=== PATIENT | female | born 1940 ===

== ENCOUNTER 2017-04-23 09:55 | Inpatient (IN) | payer MEDICARE ==
[2017-04-23 09:55] VITALS: BMI 26.0
[2017-04-23] MEDS ORDERED: Sodium Chloride 0.9% 500 ML IV STA (11:14)
[2017-04-23] MEDS ORDERED: Sodium Chloride 0.9% 500 ML IV ONE (11:27)
[2017-04-23 11:35] LABS: BASO % 0.9 % (0.0-2.0); EOS # 0.1 K/uL (0.0-0.7); EOS % 1.8 % (0.0-4.0); HEMATOCRIT 35.1 % (34.0-47.0); LYMPH # 1.2 K/uL (1.0-4.3); LYMPH % 23.5 % (20.0-40.0); MEAN CELL VOLUME 88.5 fL (81.0-99.0); MEAN CORPUSCULAR HEMOGLOBIN 28.4 pg (27.0-31.0); MEAN CORPUSCULAR HGB CONC 32.1 g/dL (33.0-37.0); MEAN PLATELET VOLUME 9.5 fL (7.2-11.7); MONO # 0.5 K/uL (0.0-0.8); MONO % 9.7 % (0.0-10.0); NRBC % 0.1 % (0.0-2.0); RED CELL DISTRIBUTION WIDTH 14.4 % (11.5-14.5); WHITE BLOOD COUNT 5.2 K/uL (4.8-10.8)
[2017-04-23 11:40] LABS: RBC URINE 4 /hpf (0-3); URINE BILIRUBIN NEGATIVE (NEGATIVE); URINE BLOOD 1+ (NEGATIVE); URINE COLOR Yellow (YELLOW); URINE GLUCOSE (UA) NORMAL (Normal); URINE HYALINE CAST 0-2 /lpf (0-2); URINE KETONE NEGATIVE (NEGATIVE); URINE LEUKOCYTE ESTERASE 3+ Leu/uL (Negative); URINE PROTEIN NEGATIVE (NEGATIVE); URINE UROBILINOGEN NORMAL mg/dL (0.2-1.0); WBC CLUMPS MOD /hpf; WBC URINE 468 /hpf (0-5)
--- NOTE | 2017-04-23 11:45 | RAD ---
PROCEDURE: CHEST RADIOGRAPH, 1 VIEW HISTORY: dizzy COMPARISON: Chest radiographs 12/25/2011. FINDINGS: LUNGS: No airspace disease appreciate bilaterally although inspiratory volume appears diminished in the interval. PLEURA: No pneumothorax or pleural fluid seen. CARDIOVASCULAR: Potential cardiomegaly versus technical magnification. OSSEOUS STRUCTURES: No significant abnormalities. VISUALIZED UPPER ABDOMEN: Normal. OTHER FINDINGS: None. IMPRESSION: Borderline cardiomegaly pattern. No pulmonary derangement. No acute infiltrate bilaterally in the interval.
[2017-04-23 11:50] LABS: ALKALINE PHOSPHATASE 78 U/L (38-126); ALT/SGPT 28 U/L (9-52); AST/SGOT 19 U/L (14-36); BILIRUBIN,TOTAL 0.7 mg/dL (0.2-1.3); BLOOD UREA NITROGEN 29 mg/dL (7-17); CALCIUM 8.6 mg/dl (8.6-10.4); CARBON DIOXIDE 33 mmol/L (22-30); CHLORIDE 97 mmol/L (98-107); GFR AFRICAN-AMERICAN 48; GLUCOSE,RANDOM 182 mg/dL (65-105); SODIUM 137 mmol/L (132-148); TOTAL PROTEIN 7.9 g/dL (6.3-8.3)
[2017-04-23 11:53] LABS: URINE BACTERIA FEW (<OCC)
--- NOTE | 2017-04-23 12:31 | CT ---
PROCEDURE: CT HEAD WITHOUT CONTRAST. HISTORY: dizzy COMPARISON: None available. TECHNIQUE: Axial computed tomography images were obtained through the head/brain without intravenous contrast. Radiation dose: Total exam DLP = 711.20 mGy-cm. This CT exam was performed using one or more of the following dose reduction techniques: Automated exposure control, adjustment of the mA and/or kV according to patient size, and/or use of iterative reconstruction technique. FINDINGS: HEMORRHAGE: No intracranial hemorrhage. BRAIN: No mass effect or edema. Intracranial atherosclerosis. Scattered periventricular and subcortical white matter hypodensities, which are nonspecific, but often seen with chronic microvascular ischemic disease. Please note that MRI with diffusion imaging is more sensitive in the detection of acute ischemic event. VENTRICLES: No hydrocephalus. CALVARIUM: Unremarkable. PARANASAL SINUSES: Unremarkable as visualized. No significant inflammatory changes. MASTOID AIR CELLS: Unremarkable as visualized. No inflammatory changes. OTHER FINDINGS: None. IMPRESSION: Nonspecific white matter changes as above.
--- NOTE | 2017-04-23 14:47 | C.PDOC ---
History Of Present Illness 77 y/o female presents to ED for evaluation of dizziness and nausea. Pt states that she had history of vertigo in the past, notes last episode of dizziness was few years ago. Notes taking Meclizine without relief. Denies headache, change in sensation, vision change, fever, or other complaints. Chief Complaint (Nursing): Dizziness/Lightheaded History Per: Patient History/Exam Limitations: no limitations Onset/Duration Of Symptoms: Days Current Symptoms Are (Timing): Still Present Recent travel outside of the [place]: No Additional History Per: Patient Past Medical History Reviewed: Historical Data, Nursing Documentation, Vital Signs Vital Signs: Last Vital Signs Temp 98 F 04/23/17 16:40 Pulse 71 04/23/17 16:40 Resp 18 04/23/17 16:40 BP 118/76 04/23/17 16:40 Pulse Ox 98 04/23/17 17:44 - Medical History PMH: Gastritis, HTN Denies: Chronic Kidney Disease Surgical History: Cholecystectomy Family History: States: Unknown Family Hx - Social History Hx Alcohol Use: No Hx Substance Use: No - Immunization History Hx Tetanus Toxoid Vaccination: No Hx Influenza Vaccination: Yes (2017) Hx Pneumococcal Vaccination: No Review Of Systems Except As Marked, All Systems Reviewed And Found Negative. Constitutional: Negative for: Fever, Chills Cardiovascular: Negative for: Chest Pain, Palpitations Respiratory: Negative for: Cough, Shortness of Breath Gastrointestinal: Positive for: Nausea. Negative for: Vomiting, Abdominal Pain Neurological: Positive for: Dizziness. Negative for: Weakness, Numbness, Headache Physical Exam - Physical Exam Appears: Non-toxic, No Acute Distress Skin: Normal Color, Warm, Dry Head: Atraumatic, Normacephalic Eye(s): bilateral: Normal Inspection, Other (no nystagmus) Neck: Normal ROM, Supple Chest: Symmetrical Cardiovascular: Rhythm Regular, No Murmur Respiratory: Normal Breath Sounds, No Rales, No Rhonchi, No Wheezing Gastrointestinal/Abdominal: Soft, No Tenderness Extremity: Normal ROM Neurological/Psych: Oriented x3, Normal Speech, Normal Cognition, Other (neuro intact) ED Course And Treatment - Laboratory Results Result Diagrams: 04/23/17 11:26 04/23/17 11:26 O2 Sat by Pulse Oximetry: 98 Pulse Ox Interpretation: Normal - CT Scan/US Head CT Other Rad Studies (CT/US): Read By Radiologist, Radiology Report Reviewed CT/US Interpretation: Accession No. : [id number]. Patient Name / ID : ADRIEN MADISON / [id number]. Exam Date : 04/23/2017 11:52:14 ( Approved ). Study Comment : Sex / Age : F / 77Y. Creator : Mag Leigh. Dictator : Kellie Melendez MD. Plastic Mixer : [employer] Executive Director : Kellie Melendez MD. Approver2 : Report Date : 04/23/2017 12:19:51. My Comment : . PROCEDURE: CT HEAD WITHOUT CONTRAST. HISTORY: dizzy. COMPARISON: None available. TECHNIQUE: Axial computed tomography images were obtained through the head/ brain without intravenous contrast. Radiation dose: Total exam DLP = 711.20 mGy-cm. This CT exam was performed using one or more of the following dose reduction techniques: Automated exposure control, adjustment of the mA and/or kV according to patient size, and/or use of iterative reconstruction technique. FINDINGS: HEMORRHAGE: No intracranial hemorrhage. BRAIN: No mass effect or edema. Intracranial atherosclerosis. Scattered periventricular and subcortical white matter hypodensities, which are nonspecific, but often seen with chronic microvascular ischemic disease. Please note that MRI with diffusion imaging is more sensitive in the detection of acute ischemic event. VENTRICLES: No hydrocephalus. CALVARIUM: Unremarkable. PARANASAL SINUSES: Unremarkable as visualized. No significant inflammatory changes. MASTOID AIR CELLS: Unremarkable as visualized. No inflammatory changes. OTHER FINDINGS: None. IMPRESSION: Nonspecific white matter changes as above. Progress Note: Blood work, UA, EKG, CXR, head CT ordered and reviewed. Pt was given Tylenol, Valium, Macrobid, and IV fluids. On re-eval, pt states she continues to feel dizzy. Case discussed with Dr. Juan Landaverde who agrees upon admission. Disposition - Disposition Disposition: HOSPITALIZED Disposition Time: 14:44 Condition: FAIR - Clinical Impression Clinical Impression: Dizziness, UTI (urinary tract infection) - PA / CLAY MIXER / Resident Statement MD/DO has reviewed & agrees with the documentation as recorded. - Scribe Statement The provider has reviewed the documentation as recorded by the Texibe Nancy Landaverde All medical record entries made by the Joelle were at my direction and personally dictated by me. I have reviewed the chart and agree that the record accurately reflects my personal performance of the history, physical exam, medical decision making, and the department course for this patient. I have also personally directed, reviewed, and agree with the discharge instructions and disposition. Decision To Admit - Pt Status Changed To: Hospital Disposition Of: Observation - . Bed Request Type: Regular Patient Diagnosis: Dizziness, UTI (urinary tract infection)
--- NOTE | 2017-04-23 19:18 | CP.PCM.HP ---
History of Present Illness - History of Present Illness History of Present Illness: A 77-year-old female with PMHgastritis and HTN presents for evaluation of dizziness and nausea. C/Odizziness/lightheadedness since the last few days. On being up in the morning as well as on doing routine activities. Patient has a history of vertigo in the past, as dizziness in the last few years. Not relieved with meclizine tablet. No C/Oheadache, blurring of vision, ringing in the ears, palpitations, chest pain, syncopal episode. Present on Admission - Present on Admission Any Indicators Present on Admission: No Past Patient History - Past Medical History & Family History Past Medical History?: Yes - Past Social History Smoking Status: Never Smoked - CARDIAC Hx Hypertension: Yes - PULMONARY Hx Respiratory Disorders: No - NEUROLOGICAL Hx Neurological Disorder: Yes Hx Dizziness: Yes Hx Vertigo: Yes - HEENT Hx HEENT Problems: No - RENAL Hx Chronic Kidney Disease: No - ENDOCRINE/METABOLIC Hx Endocrine Disorders: Yes Hx Diabetes Mellitus Type 2: Yes - HEMATOLOGICAL/ONCOLOGICAL Hx Blood Disorders: No - INTEGUMENTARY Hx Dermatological Problems: No - MUSCULOSKELETAL/RHEUMATOLOGICAL Hx Musculoskeletal Disorders: No - GASTROINTESTINAL Hx Gastritis: Yes - GENITOURINARY/GYNECOLOGICAL Hx Genitourinary Disorders: No - PSYCHIATRIC Hx Substance Use: No - SURGICAL HISTORY Hx Cholecystectomy: Yes - ANESTHESIA Hx Anesthesia: Yes Hx Anesthesia Reactions: No Hx Malignant Hyperthermia: No Meds Allergies/Adverse Reactions: Allergies Allergy/AdvReac Type Severity Reaction Status Date / Time Sulfa (Sulfonamide Allergy Intermediate RASH Verified 04/23/17 10:02 Antibiotics) Physical Exam - Constitutional Appears: Well - Head Exam Head Exam: ATRAUMATIC, NORMAL INSPECTION, NORMOCEPHALIC - Eye Exam Eye Exam: EOMI, Normal appearance, PERRL Pupil Exam: NORMAL ACCOMODATION, PERRL - ENT Exam ENT Exam: Mucous Membranes Moist, Normal Exam - Neck Exam Neck exam: Positive for: Normal Inspection - Respiratory Exam Respiratory Exam: Decreased Breath Sounds - Cardiovascular Exam Cardiovascular Exam: REGULAR RHYTHM, +S1, +S2 - GI/Abdominal Exam GI & Abdominal Exam: Diminished Bowel Sounds, Soft - Rectal Exam Rectal Exam: Deferred Results - Vital Signs Recent Vital Signs: Last Vital Signs Temp 97.9 F 04/23/17 19:09 Pulse 69 04/23/17 19:09 Resp 18 04/23/17 19:09 BP 122/76 04/23/17 19:09 Pulse Ox 98 04/23/17 19:09 - Labs Result Diagrams: 04/23/17 11:26 04/23/17 11:26 Labs: Laboratory Results - last 24 hr 04/23/17 04/23/17 04/23/17 10:12 11:26 11:26 WBC 5.2 RBC 3.96 Hgb 11.3 Hct 35.1 MCV 88.5 MCH 28.4 MCHC 32.1 L RDW 14.4 Plt Count 241 MPV 9.5 Neut % (Auto) 64.1 Lymph % (Auto) 23.5 [place] % (Auto) 9.7 Eos % (Auto) 1.8 Baso % (Auto) 0.9 Neut # 3.3 Lymph # 1.2 [place] # 0.5 Eos # 0.1 Baso # 0.0 PT INR APTT Sodium 137 Potassium 5.0 Chloride 97 L Carbon Dioxide 33 H Anion Gap 12 BUN 29 H Creatinine 1.3 H Est GFR ( Amer) 48 Est GFR (Non-Af Amer) 40 POC Glucose (mg/dL) 201 H Random Glucose 182 H Calcium 8.6 Total Bilirubin 0.7 AST 19 ALT 28 Alkaline Phosphatase 78 Total Creatine Kinase 34 Troponin I < 0.0120 Total Protein 7.9 Albumin 3.9 Globulin 4.0 H Albumin/Globulin Ratio 1.0 Urine Color Urine Clarity Urine pH Ur Specific [place] Urine Protein Urine Glucose (UA) Urine Ketones Urine Blood Urine Nitrate Urine Bilirubin Urine Urobilinogen Ur Leukocyte Esterase Urine WBC (Auto) Urine RBC (Auto) Urine WBC Clumps (Auto) Ur Squamous Epith Cells Urine Bacteria Hyaline Casts 04/23/17 04/23/17 11:26 11:26 WBC RBC Hgb Hct MCV MCH MCHC RDW Plt Count MPV Neut % (Auto) Lymph % (Auto) [place] % (Auto) Eos % (Auto) Baso % (Auto) Neut # Lymph # [place] # Eos # Baso # PT 11.2 INR 1.0 APTT 27 Sodium Potassium Chloride Carbon Dioxide Anion Gap BUN Creatinine Est GFR ( Amer) Est GFR (Non-Af Amer) POC Glucose (mg/dL) Random Glucose Calcium Total Bilirubin AST ALT Alkaline Phosphatase Total Creatine Kinase Troponin I Total Protein Albumin Globulin Albumin/Globulin Ratio Urine Color Yellow Urine Clarity Hazy Urine pH 5.0 Ur Specific [place] 1.012 Urine Protein Negative Urine Glucose (UA) Normal Urine Ketones Negative Urine Blood 1+ H Urine Nitrate Negative Urine Bilirubin Negative Urine Urobilinogen Normal Ur Leukocyte Esterase 3+ H Urine WBC (Auto) 468 H Urine RBC (Auto) 4 H Urine WBC Clumps (Auto) Mod H Ur Squamous Epith Cells 5 Urine Bacteria Few H Hyaline Casts 0-2
--- NOTE | 2017-04-23 19:56 | CP.PCM.PN ---
Subjective - Date & Time of Evaluation Date of Evaluation: 04/23/17 Time of Evaluation: 09:00 - Subjective Subjective: clinicaly same Objective - Vital Signs/Intake and Output Vital Signs (last 24 hours): Temp Pulse Resp BP Pulse Ox 97.9 F 69 18 122/76 98 04/23/17 19:09 04/23/17 19:09 04/23/17 19:09 04/23/17 19:09 04/23/17 19:09 - Medications Medications: Current Medications Amlodipine Besylate (Norvasc) 5 mg PO DAILY PRANAV Furosemide (Lasix) 80 mg PO DAILY PRANAV Lisinopril (Zestril) 2.5 mg PO DAILY PRANAV Meclizine HCl (Antivert) 25 mg PO Q8 PRANAV Metformin HCl (Glucophage) 1,000 mg PO BID PRANAV Pantoprazole Sodium (Protonix Ec Tab) 40 mg PO DAILY PRANAV - Labs Labs: 04/23/17 11:26 04/23/17 11:26 PT 11.2 SECONDS (9.7-12.2) 04/23/17 11:26 INR 1.0 04/23/17 11:26 APTT 27 SECONDS (21-34) 04/23/17 11:26
[2017-04-23] MEDS: (Novolog) Insulin Aspart, Recombinant 100 u/ml 10 ml vial SC SCH (21:38)
[2017-04-24] MEDS: (Novolog) Insulin Aspart, Recombinant 100 u/ml 10 ml vial SC SCH ×4 (08:50→22:11)
[2017-04-24] MEDS: Enoxaparin 40 mg Syringe SC SCH (10:45)
[2017-04-24] MEDS: Pantoprazole 40 mg EC Tab PO SCH (10:46)
[2017-04-24] MEDS: Sodium Chloride 0.9% 1,000 ML IV SCH (16:22)
--- NOTE | 2017-04-24 18:30 | CP.PCM.PN ---
Subjective - Date & Time of Evaluation Date of Evaluation: 04/24/17 Time of Evaluation: 08:20 - Subjective Subjective: clinically same Objective - Vital Signs/Intake and Output Vital Signs (last 24 hours): Temp Pulse Resp BP Pulse Ox 98.1 F 78 20 130/70 96 04/24/17 00:32 04/24/17 00:32 04/24/17 00:32 04/24/17 10:47 04/24/17 00:32 Intake and Output: 04/24/17 04/24/17 06:59 18:59 Intake Total 120 Balance 120 - Medications Medications: Current Medications Alprazolam (Xanax) 0.25 mg PO BID [facility] Stop: 05/01/17 22:01 Amlodipine Besylate (Norvasc) 5 mg PO DAILY [facility] Last Admin: 04/24/17 10:46 Dose: 5 mg Enoxaparin Sodium (Lovenox) 40 mg SC DAILY [facility] Last Admin: 04/24/17 10:45 Dose: 40 mg Furosemide (Lasix) 80 mg PO DAILY [facility] Last Admin: 04/24/17 10:47 Dose: 80 mg Ceftriaxone Sodium 1 gm/ (Dextrose) 100 mls @ 100 mls/hr IVPB Q24H [facility] Last Admin: 04/24/17 17:25 Dose: 100 mls/hr Sodium Chloride (Sodium Chloride 0.9%) 1,000 mls @ 80 mls/hr IV .[id number] [facility] Stop: 04/25/17 17:14 Last Admin: 04/24/17 16:22 Dose: 80 mls/hr Insulin Aspart (Novolog) 0 unit SC ACHS [facility] PRN Reason: Protocol Last Admin: 04/24/17 17:29 Dose: Not Given Lisinopril (Zestril) 2.5 mg PO DAILY [facility] Last Admin: 04/24/17 10:52 Dose: 2.5 mg Meclizine HCl (Antivert) 25 mg PO Q8 [facility] Last Admin: 04/24/17 14:07 Dose: 25 mg Metformin HCl (Glucophage) 1,000 mg PO BID [facility] Last Admin: 04/24/17 17:28 Dose: 1,000 mg Pantoprazole Sodium (Protonix Ec Tab) 40 mg PO DAILY [facility] Last Admin: 04/24/17 10:46 Dose: 40 mg - Labs Labs: 04/23/17 11:26 12/01/17 11:26 PT 11.2 SECONDS (9.7-12.2) 04/23/17 11:26 INR 1.0 04/23/17 11:26 APTT 27 SECONDS (21-34) 04/23/17 11:26 - Constitutional Appears: Well - Head Exam Head Exam: ATRAUMATIC, NORMAL INSPECTION, NORMOCEPHALIC - Eye Exam Eye Exam: EOMI, Normal appearance, PERRL Pupil Exam: NORMAL ACCOMODATION, PERRL - ENT Exam ENT Exam: Mucous Membranes Moist, Normal Exam - Neck Exam Neck Exam: Full ROM, Normal Inspection. absent: Lymphadenopathy - Respiratory Exam Respiratory Exam: Clear to Ausculation Bilateral, NORMAL BREATHING PATTERN - Cardiovascular Exam Cardiovascular Exam: REGULAR RHYTHM, +S1, +S2. absent: Murmur - GI/Abdominal Exam GI & Abdominal Exam: Soft, Normal Bowel Sounds. absent: Tenderness - Rectal Exam Rectal Exam: Deferred - Extremities Exam Extremities Exam: Full ROM, Normal Capillary Refill, Normal Inspection. absent : Joint Swelling, Pedal Edema - Back Exam Back Exam: NORMAL INSPECTION Assessment and Plan (1) Dizziness Status: Acute (2) UTI (urinary tract infection) Status: Acute - Assessment and Plan (Free Text) Plan: Patient examined. Lightheadedness present. Chest x-ray suggestive of borderline cardiomegaly. CT scan had is normal. Laboratory investigation shows creatinine of 1.3 and raised random blood glucose. Urinalysis shows leukocyte distress positive, moderate WBCs. Continue ceftriaxone. Continue insulin. Continue antihypertensive medications. Continue meclizine. Continue supportive care.
[2017-04-25] MEDS: Sodium Chloride 0.9% 1,000 ML IV SCH (05:16)
[2017-04-25 08:23] VITALS: RESP 20
[2017-04-25] MEDS: (Novolog) Insulin Aspart, Recombinant 100 u/ml 10 ml vial SC SCH ×4 (10:27→21:44)
[2017-04-25] MEDS: Enoxaparin 40 mg Syringe SC SCH (10:32)
[2017-04-25] MEDS: Pantoprazole 40 mg EC Tab PO SCH (10:32)
--- NOTE | 2017-04-25 15:51 | CON ---
NEUROLOGY CONSULTATION ATTENDING PHYSICIAN: Fernando Landaverde MD. REASON FOR CONSULTATION: Dizziness and vertigo. HISTORY OF PRESENT ILLNESS: The patient is a 77 years old lady with past medical history of hypertension, diabetes mellitus, hyperlipidemia, vertigo. The patient was admitted because of severe vertigo when she woke up from asleep on morning when she got off the bed and she felt vertiginous and unsteady, had tendency to fall and the patient was seen by her primary physician, was given meclizine and the patient states that meclizine she was using 3 times a day without significant help and then the patient was brought to the emergency room. The patient was admitted for further evaluation. The patient had a CAT scan of the brain. CAT scan did not reveal significant findings and the patient currently feels better than before since admission, but still getting dizziness with the change in head position and when gets off the bed in the morning. The patient states that she has this for the last 40 years, goes and comes for a few weeks and then disappears for several months and then it come back. The patient is followed by neurologist, but the patient was seen by ENT and gave her the meclizine and told her that this is your medicine and that is it. PAST MEDICAL HISTORY: As mentioned above. FAMILY HISTORY: Noncontributory. SOCIAL HISTORY: Denied smoking, ethanol or drug use. ALLERGY: NO KNOWN ALLERGIC REACTION TO MEDICATIONS EXCEPT FOR SULFA. SURGICAL HISTORY: Cholecystectomy. REVIEW OF SYSTEMS: As per H and P and ER notes reviewed. PHYSICAL EXAMINATION: VITAL SIGNS: Blood pressure 118/76, pulse 71, respirations 18, temperature 98.3. NEUROLOGIC: Mental state: The patient is alert, awake, oriented x3. Normal naming, repetition and comprehension. No agnosia. No apraxia. No right to left confusion. Cranial nerves: Pupils symmetrically reactive. No facial asymmetry. No field defect. Tongue midline. Tag intact. Accessory nerve intact. Motor: Normal tone in upper and lower extremities. No pronation drip. No tremors, action, rest and postural. No myoclonus. No vesiculation. Upper extremities deltoid, elbow and lottery manager 5/5. Lower extremities, hip flexion, knee flexion, extension and ankle 5/5. Deep tendon reflexes 1 to 2 in upper and lower extremities, absent at the ankles. Plantar flexion both sides. Sensory: Pinprick, light touch and position intact. Coordination: [id number] intact. Romberg deferred. LABORATORY DATA: CAT scan of the brain reviewed. I have reviewed the CAT scan of the brain consistent with periventricular white matter disease posteriorly and periventricular region in the occipital horns more than the anterior. No acute CVA. IMPRESSION: The patient's vertigo is most likely secondary to benign paroxysmal positional vertigo, recurrent. The patient will need Xanax, alprazolam or lorazepam with meclizine for her anxiety associated with the vertigo. In addition, the patient will need a vestibular therapy as an outpatient. Neurology jewell, the patient should be followed up with a neurologist as an outpatient after discharge, which I have spoken with the daughter over the phone and after taking the history with her and diagnosis, prognosis also explained to the patient and I have strongly recommended the patient to be seen as an outpatient after the discharge. Neurology jewell, the patient if stable can be discharged and follow up as an outpatient next week with Dr. Oshea. Thank you for the consultation. Hira Strickland MD
--- NOTE | 2017-04-25 17:00 | CP.PCM.PN ---
Subjective - Date & Time of Evaluation Date of Evaluation: 04/25/17 Time of Evaluation: 07:40 - Subjective Subjective: clinically same Objective - Vital Signs/Intake and Output Vital Signs (last 24 hours): Temp Pulse Resp BP Pulse Ox 97.8 F 71 20 127/68 97 04/25/17 08:20 04/25/17 08:20 04/25/17 08:20 04/25/17 10:37 04/25/17 08:20 Intake and Output: 04/25/17 04/25/17 06:59 18:59 Intake Total 1340 1240 Balance 1340 1240 - Medications Medications: Current Medications Alprazolam (Xanax) 0.25 mg PO BID [facility] Stop: 05/01/17 22:01 Last Admin: 04/25/17 10:32 Dose: 0.25 mg Amlodipine Besylate (Norvasc) 5 mg PO DAILY [facility] Last Admin: 04/25/17 10:32 Dose: 5 mg Enoxaparin Sodium (Lovenox) 40 mg SC DAILY [facility] Last Admin: 04/25/17 10:32 Dose: 40 mg Furosemide (Lasix) 80 mg PO DAILY [facility] Last Admin: 04/25/17 10:37 Dose: 80 mg Sodium Chloride (Sodium Chloride 0.9%) 1,000 mls @ 80 mls/hr IV .[id number] [facility] Stop: 04/25/17 17:14 Last Admin: 04/25/17 05:16 Dose: 80 mls/hr Ceftriaxone Sodium 1 gm/ (Sodium Chloride) 100 mls @ 100 mls/hr IVPB Q24H [facility] Last Admin: 04/25/17 16:15 Dose: 100 mls/hr Insulin Aspart (Novolog) 0 unit SC ACHS [facility] PRN Reason: Protocol Last Admin: 04/25/17 11:45 Dose: Not Given Lisinopril (Zestril) 2.5 mg PO DAILY [facility] Last Admin: 04/25/17 10:38 Dose: 2.5 mg Meclizine HCl (Antivert) 25 mg PO Q8 [facility] Last Admin: 04/25/17 14:04 Dose: 25 mg Metformin HCl (Glucophage) 1,000 mg PO BID [facility] Last Admin: 04/25/17 10:31 Dose: 1,000 mg Pantoprazole Sodium (Protonix Ec Tab) 40 mg PO DAILY [facility] Last Admin: 04/25/17 10:32 Dose: 40 mg - Labs Labs: 04/23/17 11:26 04/23/17 11:26 PT 11.2 SECONDS (9.7-12.2) 04/23/17 11:26 INR 1.0 04/23/17 11:26 APTT 27 SECONDS (21-34) 04/23/17 11:26 - Constitutional Appears: Well - Head Exam Head Exam: ATRAUMATIC, NORMAL INSPECTION, NORMOCEPHALIC - Eye Exam Eye Exam: EOMI, Normal appearance, PERRL Pupil Exam: NORMAL ACCOMODATION, PERRL - ENT Exam ENT Exam: Mucous Membranes Moist, Normal Exam - Neck Exam Neck Exam: Full ROM, Normal Inspection. absent: Lymphadenopathy - Respiratory Exam Respiratory Exam: Clear to Ausculation Bilateral, NORMAL BREATHING PATTERN - Cardiovascular Exam Cardiovascular Exam: REGULAR RHYTHM, +S1, +S2. absent: Murmur - GI/Abdominal Exam GI & Abdominal Exam: Soft, Normal Bowel Sounds. absent: Tenderness - Rectal Exam Rectal Exam: Deferred - Extremities Exam Extremities Exam: Full ROM, Normal Capillary Refill, Normal Inspection. absent : Joint Swelling, Pedal Edema - Back Exam Back Exam: NORMAL INSPECTION Assessment and Plan (1) Dizziness Status: Acute (2) UTI (urinary tract infection) Status: Acute - Assessment and Plan (Free Text) Plan: Patient examined. Lightheadedness present. Chest x-ray suggestive of borderline cardiomegaly. CT scan had is normal. Laboratory investigation shows creatinine of 1.3 and raised random blood glucose. Urinalysis shows leukocyte distress positive, moderate WBCs. Continue ceftriaxone. Continue insulin. Continue antihypertensive medications. Continue meclizine. Continue supportive care.
--- NOTE | 2017-04-25 21:39 | CP.PCM.CON ---
History of Present Illness - History of Present Illness History of Present Illness: Patient seen and evaluated Admitted for dizziness Etiology unclear Check ECHO and carotids Neuro eval in progress Past Patient History - Past Medical History & Family History Past Medical History?: Yes - Past Social History Smoking Status: Never Smoked - CARDIAC Hx Hypertension: Yes - PULMONARY Hx Respiratory Disorders: No - NEUROLOGICAL Hx Neurological Disorder: Yes Hx Dizziness: Yes Hx Vertigo: Yes - HEENT Hx HEENT Problems: No - RENAL Hx Chronic Kidney Disease: No - ENDOCRINE/METABOLIC Hx Diabetes Mellitus Type 2: Yes - HEMATOLOGICAL/ONCOLOGICAL Hx Blood Disorders: No - INTEGUMENTARY Hx Dermatological Problems: No - MUSCULOSKELETAL/RHEUMATOLOGICAL Hx Musculoskeletal Disorders: No - GASTROINTESTINAL Hx Gastritis: Yes - GENITOURINARY/GYNECOLOGICAL Hx Genitourinary Disorders: No - PSYCHIATRIC Hx Substance Use: No - SURGICAL HISTORY Hx Cholecystectomy: Yes - ANESTHESIA Hx Anesthesia: Yes Hx Anesthesia Reactions: No Hx Malignant Hyperthermia: No Meds Allergies/Adverse Reactions: Allergies Allergy/AdvReac Type Severity Reaction Status Date / Time Sulfa (Sulfonamide Allergy Intermediate RASH Verified 04/23/17 10:02 Antibiotics) - Medications Medications: Current Medications Alprazolam (Xanax) 0.25 mg PO BID [facility] Stop: 05/01/17 22:01 Last Admin: 04/25/17 10:32 Dose: 0.25 mg Amlodipine Besylate (Norvasc) 5 mg PO DAILY [facility] Last Admin: 04/25/17 10:32 Dose: 5 mg Enoxaparin Sodium (Lovenox) 40 mg SC DAILY [facility] Last Admin: 04/25/17 10:32 Dose: 40 mg Furosemide (Lasix) 80 mg PO DAILY [facility] Last Admin: 04/25/17 10:37 Dose: 80 mg Ceftriaxone Sodium 1 gm/ (Sodium Chloride) 100 mls @ 100 mls/hr IVPB Q24H [facility] Last Admin: 04/25/17 16:15 Dose: 100 mls/hr Insulin Aspart (Novolog) 0 unit SC ACHS [facility] PRN Reason: Protocol Last Admin: 04/25/17 16:30 Dose: Not Given Lisinopril (Zestril) 2.5 mg PO DAILY [facility] Last Admin: 04/25/17 10:38 Dose: 2.5 mg Meclizine HCl (Antivert) 25 mg PO Q8 [facility] Last Admin: 04/25/17 14:04 Dose: 25 mg Metformin HCl (Glucophage) 1,000 mg PO BID [facility] Last Admin: 04/25/17 17:48 Dose: 1,000 mg Pantoprazole Sodium (Protonix Ec Tab) 40 mg PO DAILY [facility] Last Admin: 04/25/17 10:32 Dose: 40 mg Pneumococcal Polyvalent Vaccine (Pneumovax 23 Vaccine) 0.5 ml IM .ONCE ONE Stop: 04/26/17 10:01 Results - Vital Signs Recent Vital Signs: Last Vital Signs Temp 97.7 F 04/25/17 16:00 Pulse 80 04/25/17 16:00 Resp 20 04/25/17 16:00 BP 118/70 04/25/17 16:00 Pulse Ox 97 04/25/17 16:00 - Labs Result Diagrams: 04/23/17 11:26 04/23/17 11:26 Labs: Laboratory Results - last 24 hr 04/24/17 04/25/17 04/25/17 21:42 07:33 11:43 POC Glucose (mg/dL) 98 110 104
[2017-04-26] MEDS: (Novolog) Insulin Aspart, Recombinant 100 u/ml 10 ml vial SC SCH ×3 (07:41→17:12)
--- NOTE | 2017-04-26 09:51 | PN ---
DATE: 04/26/2017 PHYSICAL EXAMINATION VITAL SIGNS: Blood pressure 116/71, mean arterial pressure of 86, respiratory rate 18, temperature afebrile. Patient was seen for dizziness by Dr. Strickland over the weekend. His consultation and workup have been appreciated. Patient is comfortably sitting and eating her pancake this morning. No subjective symptoms. Her dizziness is gone. Patient's neurological examination is unchanged. When medically stable, patient can be discharge and patient can be followed by me as outpatient. Patient can be benefited with vestibular therapy for her longstanding benign paroxysmal positional vertigo. Jigar Oshea MD
[2017-04-26] MEDS ORDERED: Pneumococcal 23-Valent Vaccine IM ONE (10:00)
[2017-04-26] MEDS: Enoxaparin 40 mg Syringe SC SCH (10:14)
[2017-04-26] MEDS: Pantoprazole 40 mg EC Tab PO SCH (10:14)
--- NOTE | 2017-04-26 13:08 | VASCLAB ---
PROCEDURE: HISTORY: Dizziness COMPARISON: None available. TECHNIQUE: Grayscale and duplex Doppler evaluation of the cervical carotid and vertebral arteries were performed. The common carotid, carotid bifurcations and cervical Internal Carotid Artery (ICA) and proximal External Carotid Artery (ECA) were evaluated. The vertebral arteries were evaluated for gross patency and flow direction. Report prepared by [place], BS, RVT FINDINGS: RIGHT CAROTID ARTERIES: 1. Common Carotid Artery: No significant focal plaque formation of the right common carotid artery. Maximum Peak Systolic velocity: 109 cm/sec: End-diastolic velocity 35 cm/sec. 2. Carotid Bifurcation: plaque formation. Maximum Peak Systolic velocity: 62 cm/sec: End-diastolic velocity 16 cm/sec. 3. Internal Carotid Artery: Plaque description: 3.1. Proximal Segment: Peak systolic velocity 109 cm/sec: End-diastolic velocity 35 cm/sec - % stenosis 0-15% 3.2. Middle Segment: Peak systolic velocity 64 cm/sec: End-diastolic velocity 18 cm/sec - % stenosis 0-15% 3.3. Distal Segment: Peak systolic velocity 93 cm/sec: End-diastolic velocity 23 cm/sec - % stenosis 0-15% 4. External Carotid Artery: No significant focal plaque formation. Peak systolic velocity 88 cm/sec 5. ICA/CCA Ratio: 1.4 LEFT CAROTID ARTERIES: 1. Common Carotid Artery: No significant focal plaque formation of the left common carotid artery. Maximum Peak Systolic velocity: 78 cm/sec: End-diastolic velocity 18 cm/sec. 2. Carotid Bifurcation: plaque formation. Maximum Peak Systolic velocity: 65 cm/sec: End-diastolic velocity 15 cm/sec. 3. Internal Carotid Artery: Plaque description: 3.1. Proximal Segment: Peak systolic velocity 72 cm/sec: End-diastolic velocity 25 cm/sec - % stenosis 0-15% 3.2. Middle Segment: Peak systolic velocity 89 cm/sec: End-diastolic velocity 28 cm/sec - % stenosis 0-15% 3.3. Distal Segment: Peak systolic velocity 96 cm/sec: End-diastolic velocity 31 cm/sec - % stenosis 0-15% 4. External Carotid Artery: No significant focal plaque formation. Peak systolic velocity 83 cm/sec 5. ICA/CCA Ratio: 1.2 VERTEBRAL ARTERIES: 1. Right Vertebral Artery: The right vertebral artery flow direction is antegrade. 2. Left Vertebral Artery: The left vertebral artery flow direction is antegrade. OTHER FINDINGS: 1. Right Brachial Blood pressure: 128 mmHg. 2. Left Brachial Blood pressure: 124 mmHg. IMPRESSION: RIGHT: Duplex scan does not suggest hemodynamically significant stenosis of the right extracranial carotid arteries. LEFT: Duplex scan does not suggest hemodynamically significant stenosis of the left extracranial carotid arteries.
--- NOTE | 2017-04-26 16:29 | CP.PCM.PN ---
Subjective - Date & Time of Evaluation Date of Evaluation: 04/26/17 Time of Evaluation: 16:29 - Subjective Subjective: PT CLEARED FOR D/C HOME TODAY PER DR.J ESPINAL. PER DR. TROTTER OK TO D/C HOME TODAY. CLEARED BY NEURO DR. FOSS PER HIS PROGRESS NOTE. RX PO ABX FOR UTI AND + URINE CX. PT TO F/U WITH NEURO, CARDIO AND PRIMARY MD WITHIN THEIR OFFICES WITHIN 1-2 WEEKS. RECOMMEND VESTIBULAR THERAPY PER NEURO RECS. ALL D/ C AND MEDS DISCUSSED WITH PT AND . THEY VERBALIZE UNDERSTANDING OF D/C. NO FURTHER ORDERS. Objective - Vital Signs/Intake and Output Vital Signs (last 24 hours): Temp Pulse Resp BP Pulse Ox 97.9 F 71 20 130/71 97 04/26/17 08:06 04/26/17 08:06 04/26/17 08:06 04/26/17 10:17 04/26/17 08:06 - Medications Medications: Current Medications Alprazolam (Xanax) 0.25 mg PO BID [facility] Stop: 05/01/17 22:01 Last Admin: 04/26/17 10:14 Dose: 0.25 mg Amlodipine Besylate (Norvasc) 5 mg PO DAILY [facility] Last Admin: 04/26/17 10:17 Dose: 5 mg Enoxaparin Sodium (Lovenox) 40 mg SC DAILY [facility] Last Admin: 04/26/17 10:14 Dose: 40 mg Furosemide (Lasix) 80 mg PO DAILY [facility] Last Admin: 04/26/17 10:17 Dose: 80 mg Ceftriaxone Sodium 1 gm/ (Sodium Chloride) 100 mls @ 100 mls/hr IVPB Q24H [facility] Last Admin: 04/25/17 16:15 Dose: 100 mls/hr Insulin Aspart (Novolog) 0 unit SC ACHS [facility] PRN Reason: Protocol Last Admin: 04/26/17 12:13 Dose: 1 unit Lisinopril (Zestril) 2.5 mg PO DAILY [facility] Last Admin: 04/26/17 10:14 Dose: 2.5 mg Meclizine HCl (Antivert) 25 mg PO Q8 [facility] Last Admin: 04/26/17 13:14 Dose: 25 mg Metformin HCl (Glucophage) 1,000 mg PO BID [facility] Last Admin: 04/26/17 10:14 Dose: 1,000 mg Pantoprazole Sodium (Protonix Ec Tab) 40 mg PO DAILY [facility] Last Admin: 04/26/17 10:14 Dose: 40 mg - Labs Labs: 04/23/17 11:26 04/23/17 11:26 PT 11.2 SECONDS (9.7-12.2) 04/23/17 11:26 INR 1.0 04/23/17 11:26 APTT 27 SECONDS (21-34) 04/23/17 11:26
[2017-04-26 16:56] VITALS: BP 110/66; PULSE 86; TEMP 98.4; O2SAT 95
--- NOTE | 2017-04-26 18:04 | CARD ---
APPROVED REPORT EKG Measurement Heart [id number] <Conclusion> Normal sinus rhythm Normal ECG
--- NOTE | 2017-04-27 07:07 | CARD ---
APPROVED REPORT EXAM: Two-dimensional and M-mode echocardiogram with Doppler and color Doppler. Other Information Quality : [employer] : INDICATION Dizziness and Vertigo RISK FACTORS Hypertension Diabetes 2D DIMENSIONS IVSd0.9 (0.7-1.1cm)LVDd4.1 (3.9-5.9cm) PWd0.9 (0.7-1.1cm)LVDs3.2 (2.5-4.0cm) FS (%) 21.6 % M-Mode DIMENSIONS RVDd1.75 (2.1-3.2cm)Left Atrium (MM)2.53 (2.5-4.0cm) IVSd0.87 (0.7-1.1cm)Aortic Root2.75 (2.2-3.7cm) LVDd4.15 (4.0-5.6cm)Aortic Cusp Exc.1.93 (1.5-2.0cm) PWd0.62 (0.7-1.1cm)FS (%) 41 % LVDs2.43 (2.0-3.8cm)LVEF (%)73 (>50%) Mitral Valve MV E Wunczcbv78.1cm/sMV A Ltwrkktv75.5cm/sE/A ratio0.8 TDI E/Lateral E'0.0E/Medial E'0.0 Tricuspid Valve TR Peak [id number]/sTR Peak Gr.[id number] LEFT VENTRICLE The left ventricle is normal size. There is normal left ventricular wall thickness. Left ventricle systolic function is normal. The Ejection Fraction is >70%. There is normal LV segmental wall motion. Tissue Doppler imaging reveals abnormal left ventricular diastolic dysfunction. RIGHT VENTRICLE The right ventricle is normal size. There is normal right ventricular wall thickness. The right ventricular systolic function is normal. ATRIA The left atrium size is normal. The right atrium size is normal. The interatrial septum is intact with no evidence for an atrial septal defect. AORTIC VALVE The aortic valve is normal in structure. No aortic regurgitation is present. There is no aortic valvular stenosis. MITRAL VALVE The mitral valve is normal in structure. There is no evidence of mitral valve prolapse. There is no mitral valve stenosis. There is no mitral valve regurgitation noted. TRICUSPID VALVE The tricuspid valve is normal in structure. There is mild tricuspid regurgitation. Right ventricular systolic pressure is estimated at 40-50 mmHg. There is mild pulmonary hypertension. PULMONIC VALVE The pulmonic valve leaflets are thin and pliable; valve motion is normal. There is no pulmonic valvular regurgitation. GREAT VESSELS The aortic root is normal in size. PERICARDIAL EFFUSION There is no significant pericardial effusion. <Conclusion> Left ventricle systolic function is normal. The Ejection Fraction is >70%. Diastolic dysfunction. No aortic regurgitation is present. There is no mitral valve regurgitation noted. There is mild tricuspid regurgitation. There is mild pulmonary hypertension. There is no pulmonic valvular regurgitation.
== END 2017-04-26 17:49 | disposition home or self-care (01) | DRG 690 ==
LOC: C.ER 09:55 → C.9E 14:47 → C.3T 19:25 → OBSVTOIN 04-24 15:59
PROVIDERS: ADMIT Internal Medicine Nephrology; ATTEND Internal Medicine Nephrology
DX: N39.0 Urinary tract infection, site not specified (principal); E11.9 Type 2 diabetes mellitus without complications; F41.9 Anxiety disorder, unspecified; H81.10 Benign paroxysmal vertigo, unspecified ear; E78.5 Hyperlipidemia, unspecified; I10 Essential (primary) hypertension; R29.6 Repeated falls